=== PATIENT | female | born 1945 | race Hispanic/Latino ===

== ENCOUNTER 2020-07-07 10:21 | Outpatient (CLI) | payer SELFPAY ==
[2020-07-07] MEDS ORDERED: COVID-19 VACC, MRNA(PFIZER)/PF 30 MCG/0.3 ML IM ONE (10:37)
== END 2020-07-07 10:22 | disposition home or self-care (01) ==
LOC: COVVAC 10:21
PROVIDERS: ATTEND Internal Medicine
DX: Z23 Encounter for immunization (principal)
CPT/HCPCS: 0002A; 91300